=== PATIENT | female | born 2000 | race Hispanic/Latino ===

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

== ENCOUNTER → 2020-04-26 | Outpatient (REF) | payer OTHER, MEDICAID ==
[~2020-04-26] MED LIST changes: +AUGM875T28 PO
[2020-04-26 17:24] LABS: BASO % 0.4 % (0.0-1.0); EOS # 0.3 10^3/uL (0.0-0.5); EOS % 2.3 % (0.0-3.0); HEMATOCRIT 36.8 % (36.0-47.0); HEMOGLOBIN 11.8 g/dl (12.0-15.5); LYMPH # 3.5 10^3/uL (1.5-5.0); LYMPH % 32.5 % (24.0-44.0); MEAN CORPUSCULAR HEMOGLOBIN 26.9 pg (27.0-33.0); MEAN CORPUSCULAR HGB CONC 32.1 g/dl (32.0-36.5); MEAN CORPUSCULAR VOLUME 83.8 fl (80.0-96.0); MONO # 0.6 10^3/uL (0.0-0.8); MONO % 5.7 % (0.0-5.0); NEUTROPHILS # 6.3 10^3/uL (1.5-8.5); NEUTROPHILS % 58.8 % (36.0-66.0); PLATELET COUNT, AUTOMATED 406 10^3/uL (150-450); RED BLOOD COUNT 4.39 10^6/uL (4.00-5.40); WHITE BLOOD COUNT 10.8 10^3/uL (4.0-10.0)
[2020-04-26 18:22] LABS: ALT/SGPT 25 U/L (12-78); BILIRUBIN,TOTAL 0.3 MG/DL (0.2-1.0); BLOOD UREA NITROGEN 13 MG/DL (7-18); CALCIUM LEVEL 9.3 MG/DL (8.5-10.1); CARBON DIOXIDE LEVEL 28 MEQ/L (21-32); CHLORIDE LEVEL 106 MEQ/L (98-107); CHOLESTEROL LEVEL 180 MG/DL (<200); CHOLESTEROL RISK RATIO 5.625 (<5); CREATININE FOR GFR 0.77 MG/DL (0.55-1.30); FREE T4 0.98 NG/DL (0.76-1.46); GLOMERULAR FILTRATION RATE > 60.0 (>60); GLUCOSE, FASTING 80 MG/DL (70-100); HDL CHOLESTEROL 32 MG/DL (>40); LDL CHOLESTEROL 86 MG/DL (<100); NON-HDL-C 148 MG/DL; POTASSIUM SERUM 4.5 MEQ/L (3.5-5.1); SODIUM LEVEL 139 MEQ/L (136-145); TOTAL PROTEIN 8.5 GM/DL (6.4-8.2); TRIGLYCERIDES LEVEL 311 MG/DL (<150)
[2020-04-26 18:26] LABS: TOTAL 25(OH) VITAMIN D 19.9 NG/ML (30.0-100.0)
[2020-04-26 20:11] LABS: HEMOGLOBIN A1c 5.5 %
== END ==
LOC: M LAB REF 16:13
PROVIDERS: ATTEND Nurse Practitioner Family
DX: J30.9 Allergic rhinitis, unspecified (principal); Z13.9 Encounter for screening, unspecified; E66.9 Obesity, unspecified; J45.990 Exercise induced bronchospasm; Z82.49 Family history of ischemic heart disease and other diseases of the circulatory system; Z83.3 Family history of diabetes mellitus; Z81.8 Family history of other mental and behavioral disorders; Z82.5 Family history of asthma and other chronic lower respiratory diseases

== ENCOUNTER 2020-05-31 13:52 | Emergency (ER) | payer OTHER, MEDICAID ==
[~2020-05-31] VITALS: Ht 152.4 cm; Wt 79.5 kg
[2020-05-31 13:53] VITALS: BP 118/66
[2020-05-31] MEDS ORDERED: D31000TA2 PO (14:05)
== END 2020-05-31 17:25 | disposition home or self-care (01) ==
LOC: M ED 13:52
DX: R50.9 Fever, unspecified (principal); R51.9 Headache, unspecified; R11.0 Nausea; R09.81 Nasal congestion; R07.0 Pain in throat; J45.909 Unspecified asthma, uncomplicated
CPT/HCPCS: 99283; U0003

== ENCOUNTER → 2020-08-24 | Outpatient (REF) | payer OTHER, MEDICAID ==
[~2020-08-24] MED LIST changes: +D31000TA2 PO
[2020-08-24 12:06] LABS: BASO % 0.3 % (0.0-1.0); EOS # 0.3 10^3/uL (0.0-0.5); EOS % 2.9 % (0.0-3.0); HEMATOCRIT 38.5 % (36.0-47.0); HEMOGLOBIN 11.7 g/dl (12.0-15.5); LYMPH # 3.4 10^3/uL (1.5-5.0); MEAN CORPUSCULAR HEMOGLOBIN 26.4 pg (27.0-33.0); MEAN CORPUSCULAR HGB CONC 30.4 g/dl (32.0-36.5); MEAN CORPUSCULAR VOLUME 86.7 fl (80.0-96.0); MONO # 0.6 10^3/uL (0.0-0.8); MONO % 6.4 % (2.0-8.0); NEUTROPHILS # 4.4 10^3/uL (1.5-8.5); NEUTROPHILS % 51.1 % (36.0-66.0); PLATELET COUNT, AUTOMATED 428 10^3/uL (150-450); RED BLOOD COUNT 4.44 10^6/uL (4.00-5.40); WHITE BLOOD COUNT 8.6 10^3/uL (4.0-10.0)
[2020-08-24 12:41] LABS: ALBUMIN 4.1 GM/DL (3.2-5.2); ALT/SGPT 31 U/L (12-78); BILIRUBIN,TOTAL 0.2 MG/DL (0.2-1.0); BLOOD UREA NITROGEN 10 MG/DL (7-18); CALCIUM LEVEL 9.2 MG/DL (8.5-10.1); CARBON DIOXIDE LEVEL 26 MEQ/L (21-32); CHLORIDE LEVEL 106 MEQ/L (98-107); CHOLESTEROL LEVEL 173 MG/DL (<200); CREATININE FOR GFR 0.73 MG/DL (0.55-1.30); GLOMERULAR FILTRATION RATE > 60.0 (>60); GLUCOSE, FASTING 106 MG/DL (70-100); HDL CHOLESTEROL 31 MG/DL (>40); LDL CHOLESTEROL 90 MG/DL (<100); NON-HDL-C 142 MG/DL; POTASSIUM SERUM 3.9 MEQ/L (3.5-5.1); SODIUM LEVEL 139 MEQ/L (136-145); TOTAL PROTEIN 8.2 GM/DL (6.4-8.2); TRIGLYCERIDES LEVEL 262 MG/DL (<150)
== END ==
LOC: M LAB REF 11:11
PROVIDERS: ATTEND Nurse Practitioner Family
DX: E78.2 Mixed hyperlipidemia (principal)

== ENCOUNTER 2021-04-04 13:47 | Emergency (ER) | payer MEDICAID, OTHER ==
[~2021-04-04] VITALS: Ht 152.4 cm; Wt 77.1 kg
[2021-04-04 19:32] LABS: BASO % 0.3 % (0.0-1.0); EOS # 0.2 10^3/uL (0.0-0.5); EOS % 1.5 % (0.0-3.0); LYMPH # 3.7 10^3/uL (1.5-5.0); LYMPH % 29.2 % (24.0-44.0); MEAN CORPUSCULAR HEMOGLOBIN 26.7 pg (27.0-33.0); MEAN CORPUSCULAR HGB CONC 31.6 g/dl (32.0-36.5); MEAN CORPUSCULAR VOLUME 84.4 fl (80.0-96.0); MONO # 0.7 10^3/uL (0.0-0.8); MONO % 5.5 % (2.0-8.0); NEUTROPHILS % 63.2 % (36.0-66.0); PLATELET COUNT, AUTOMATED 409 10^3/uL (150-450); WHITE BLOOD COUNT 12.6 10^3/uL (4.0-10.0)
[2021-04-04 19:58] LABS: ALBUMIN 3.9 GM/DL (3.2-5.2); BILIRUBIN,DIRECT 0.1 MG/DL (0.0-0.2); BILIRUBIN,TOTAL 0.3 MG/DL (0.2-1.0); TOTAL PROTEIN 8.5 GM/DL (6.4-8.2)
--- NOTE | 2021-04-04 21:54 | REPVR ---
PROCEDURE INFORMATION: Exam: US Nonobstetric Pelvis; Complete Exam date and time: 04/04/2021 8:32 PM Age: 21 years old Clinical indication: Pelvic pain; Additional info: Low right abdominal pain/try to visual ovary and appendix TECHNIQUE: Imaging protocol: Transabdominal pelvic nonobstetric ultrasound. Complete exam. Real time ultrasound with image documentation. COMPARISON: No relevant prior studies available. FINDINGS: Uterus/cervix: Uterus measures 8.1 x 4.5 x 4.9 cm in size. No focal uterine mass. Endometrial stripe appears homogeneous, measuring 13 mm in thickness. Right adnexa: Right ovary measures 6.9 x 3.9 x 5.3 cm in size. Possible complex cyst 3.9 cm. Doppler flow is documented in both ovaries. Right ovarian resistive index 0.55. Left ovarian resistive index 0.46 Left adnexa: Left ovary measures 4.8 x 3.9 x 5.1 cm in size. Small 19 mm simple cyst/follicle. Appendix: Appendix is not visualized. Intraperitoneal space: Trace free fluid is present in the pelvis. Urinary bladder: Urinary bladder appears unremarkable. IMPRESSION: 1. Complex right ovarian lesion which may represent a hemorrhagic cyst perhaps most likely, or endometrioma. No evidence of ovarian torsion 2. Simple follicle/cyst, left ovary. 3. No uterine abnormality. 4. Nonvisualization of the appendix Electronically signed by: Julito Rizvi On 04/04/2021 21:53:34 PM
[2021-04-04 22:56] VITALS: BP 130/68
--- NOTE | 2021-04-06 16:42 | ED PDOC ---
Post-Departure Follow-Up pelvic us faxed to arturo chandra for fu Yoly Paredes MD Apr 06, 2021 16:42
== END 2021-04-04 22:59 | disposition home or self-care (01) ==
LOC: M ED 13:47
DX: N83.291 Other ovarian cyst, right side (principal); N83.292 Other ovarian cyst, left side; J45.909 Unspecified asthma, uncomplicated

== ENCOUNTER 2021-09-19 15:43 | Inpatient (IN) | payer OTHER ==
[~2021-09-19] VITALS: Ht 152.4 cm; Wt 74.9 kg
[~2021-09-19 15:43] MED LIST changes: -D31000TA2 PO; +VITA100093 PO
[2021-09-19] MEDS ORDERED: CETI-24 (16:07)
[2021-09-19] MEDS ORDERED: KETOROLAC 30 MG/ML 1ML VIAL IV ONE ×2 (18:25→20:10)
[2021-09-19 18:57] LABS: HEMATOCRIT 38.6 % (36.0-47.0); HEMOGLOBIN 12.5 g/dl (12.0-15.5); MEAN CORPUSCULAR HEMOGLOBIN 26.4 pg (27.0-33.0); MEAN CORPUSCULAR HGB CONC 32.4 g/dl (32.0-36.5); MEAN CORPUSCULAR VOLUME 81.4 fl (80.0-96.0); PLATELET COUNT, AUTOMATED 400 10^3/uL (150-450); RED BLOOD COUNT 4.74 10^6/uL (4.00-5.40); WHITE BLOOD COUNT 11.9 10^3/uL (4.0-10.0)
[2021-09-19 19:24] LABS: BASOPHILS 1 % (0-1); EOSINOPHILS 3 % (0-3); LYMPHOCYTES 39 % (16-44); MONOCYTES 6 % (0-5); NEUTROPHILS 51 % (28-66)
[2021-09-19 19:25] LABS: PLATELET ESTIMATE NORMAL (NORMAL)
[2021-09-19 19:31] LABS: ALBUMIN 4.2 GM/DL (3.2-5.2); ALT/SGPT 21 U/L (12-78); AMYLASE 52 U/L (25-115); BILIRUBIN,DIRECT < 0.1 MG/DL (0.0-0.2); BILIRUBIN,TOTAL 0.4 MG/DL (0.2-1.0); BLOOD UREA NITROGEN 10 MG/DL (7-18); C REACTIVE PROTEIN QUANTITATIV 1.44 MG/DL (0.00-0.30); CALCIUM LEVEL 9.6 MG/DL (8.5-10.1); CARBON DIOXIDE LEVEL 29 MEQ/L (21-32); CHLORIDE LEVEL 106 MEQ/L (98-107); CREATININE FOR GFR 0.69 MG/DL (0.55-1.30); GLOMERULAR FILTRATION RATE > 60.0 (>60); GLUCOSE, FASTING 73 MG/DL (70-100); LIPASE 107 U/L (73-393); POTASSIUM SERUM 4.3 MEQ/L (3.5-5.1); SODIUM LEVEL 138 MEQ/L (136-145); TOTAL PROTEIN 8.8 GM/DL (6.4-8.2)
[2021-09-19] MEDS ORDERED: NS 1,000 ML IV ONE (19:45)
[2021-09-19 19:46] LABS: ERYTHROCYTE SEDIMENTATION RATE 52 mm/hr (0-20)
[2021-09-19] MEDS ORDERED: ISOVUE-370 76% 100ML VIAL As Ordered ONE (19:55)
[2021-09-19 21:16] LABS: HCG, SERUM QUALITATIVE NEGATIVE (NEGATIVE)
[2021-09-19] MEDS ORDERED: MORPHINE 4 MG/ML 1ML VIAL/SYRINGE IV ONE (22:50)
[2021-09-19] MEDS ORDERED: MORPHINE 4 MG/ML 1ML VIAL/SYRINGE IV PRN (23:30)
[2021-09-19] MEDS ORDERED: ONDANSETRON 4MG/2ML VIAL IV PRN (23:30)
[2021-09-19] MEDS ORDERED: PERCOCET 5MG/325MG TAB PO PRN ×2 (23:30)
[2021-09-19] MEDS ORDERED: ALBU8.5H INH (23:42)
[2021-09-19] MEDS ORDERED: CETI-24 PO (23:42)
[2021-09-19] MEDS ORDERED: HOME MED LIST COMPLETE! XX SCH (23:45)
[2021-09-20] MEDS: LR 1,000 ML IV SCH ×3 (00:01→15:13)
[2021-09-20 00:59] LABS: RSV AMPLIFICATION NEGATIVE (NEGATIVE)
[2021-09-20 02:30] VITALS: BP 99/58
[2021-09-20 06:00] VITALS: BP 100/57
[2021-09-20 08:47] LABS: HEMATOCRIT 33.5 % (36.0-47.0); HEMOGLOBIN 10.8 g/dl (12.0-15.5); MEAN CORPUSCULAR HEMOGLOBIN 26.6 pg (27.0-33.0); MEAN CORPUSCULAR HGB CONC 32.2 g/dl (32.0-36.5); MEAN CORPUSCULAR VOLUME 82.5 fl (80.0-96.0); PLATELET COUNT, AUTOMATED 335 10^3/uL (150-450); RED BLOOD COUNT 4.06 10^6/uL (4.00-5.40); WHITE BLOOD COUNT 9.5 10^3/uL (4.0-10.0)
[2021-09-20 08:50] VITALS: BP 100/57
[2021-09-20 11:09] LABS: GC DNA AMPLIFICATION NEGATIVE (NEGATIVE)
[2021-09-20 14:00] VITALS: BP 140/70
[2021-09-20] MEDS ORDERED: SPRI28TA PO (15:18)
== END 2021-09-20 18:00 | disposition home or self-care (01) | DRG 532 ==
LOC: M ED 15:43 → M ED INP 23:30 → ENRESERV 09-20 01:23 → M MS5PR 09-20 02:28
PROVIDERS: ADMIT Specialist; ATTEND Specialist
DX: N80.9 Endometriosis, unspecified (principal); J45.909 Unspecified asthma, uncomplicated; Z20.822 Contact with and (suspected) exposure to COVID-19; Z79.899 Other long term (current) drug therapy; R10.2 Pelvic and perineal pain

== ENCOUNTER → 2022-01-18 | Outpatient (CLI) | payer OTHER ==
[~2022-01-18] MED LIST changes: +ALBU8.5H INH; +BIOT10009 PO; +CETI-24; +CETI-24 PO; +KETO10TAB PO; +SPRI28TA PO
== END ==
LOC: M LABSMTC 11:27
PROVIDERS: ATTEND Anesthesiology
DX: Z01.812 Encounter for preprocedural laboratory examination (principal); Z20.822 Contact with and (suspected) exposure to COVID-19

== ENCOUNTER 2022-01-23 09:44 | Day surgery (SDC) | payer OTHER ==
[~2022-01-23] VITALS: Ht 152.4 cm; Wt 73.6 kg
[2022-01-23] MEDS ORDERED: MIDAZOLAM INJ 2MG/2ML VIAL (J2250 PER 1MG) As Ordered ONE (10:31)
[2022-01-23] MEDS ORDERED: dexameTHASONE 4 MG/ML 1ML VIAL (J1100 PER 1MG) As Ordered ONE (10:32)
[2022-01-23] MEDS ORDERED: propofoL 200 MG/20 ML VIAL As Ordered ONE (10:32)
[2022-01-23] MEDS ORDERED: ONDANSETRON 4MG 2ML VIAL As Ordered ONE (10:32)
[2022-01-23] MEDS ORDERED: ROCURONIUM BROMIDE 50 MG/5 ML VIAL As Ordered ONE (10:32)
[2022-01-23] MEDS ORDERED: LIDOCAINE 2% 100MG/5ML SDV (FOR ANES.) As Ordered ONE (10:32)
[2022-01-23] MEDS ORDERED: fentaNYL 100 MCG/2 ML INJECTION As Ordered ONE ×2 (10:32→15:16)
[2022-01-23] MEDS: LR 1,000 ML IV SCH (10:46)
[2022-01-23 11:06] LABS: HEMATOCRIT 38.2 % (36.0-47.0); HEMOGLOBIN 12.3 g/dl (12.0-15.5); MEAN CORPUSCULAR HEMOGLOBIN 26.7 pg (27.0-33.0); MEAN CORPUSCULAR HGB CONC 32.2 g/dl (32.0-36.5); PLATELET COUNT, AUTOMATED 386 10^3/uL (150-450); WHITE BLOOD COUNT 10.7 10^3/uL (4.0-10.0)
[2022-01-23] MEDS ORDERED: BUPIVACAINE HCL 0.25% 10ML VIAL As Ordered ONE (12:03)
[2022-01-23] MEDS ORDERED: ACETAMINOPHEN 1000MG 100ML IV BTL (OFIRMEV) (J0131 PER 10MG) As Ordered ONE (12:47)
[2022-01-23] MEDS ORDERED: HYDROmorphone HCL 2MG/ML 1ML VIAL As Ordered ONE (12:51)
[2022-01-23] MEDS ORDERED: KETOROLAC 60MG 2ML VIAL As Ordered ONE (13:16)
[2022-01-23] MEDS ORDERED: SUGAMMADEX SODIUM 500 MG/5 ML VIAL (BRIDION) As Ordered ONE (15:11)
[2022-01-23] MEDS ORDERED: METOCLOPRAMIDE INJ 10MG/2ML VIAL (J2765 PER 1) IV PRN (15:45)
[2022-01-23] MEDS ORDERED: MEPERIDINE INJ 25 MG/ML VIAL (J2175) IV PRN (15:45)
[2022-01-23] MEDS ORDERED: HYDROMORPHONE HCL 0.5 MG/ 0.5 ML SYRINGE (J1170 PER 1) IV PRN (15:45)
[2022-01-23] MEDS ORDERED: ONDANSETRON 4MG 2ML VIAL IV PRN (15:45)
[2022-01-23] MEDS ORDERED: LR 1,000 ML IV SCH ×2 (15:45→16:00)
[2022-01-23] MEDS ORDERED: IBUP-1022 PO (15:53)
[2022-01-23] MEDS ORDERED: OXYC1TAB23 PO (15:55)
[2022-01-23] MEDS: fentaNYL 100 MCG/2 ML INJECTION IV PRN ×4 (15:55→16:15)
[2022-01-23] MEDS ORDERED: PERCOCET 5MG/325MG TAB PO PRN (16:00)
[2022-01-23] MEDS: oxyCODONE 5MG TAB PO PRN ×2 (16:03→16:35)
[2022-01-23 19:24] VITALS: BP 116/66
== END 2022-01-23 19:35 | disposition home or self-care (01) ==
LOC: M SDC 09:44
PROVIDERS: ATTEND Specialist
DX: N80.9 Endometriosis, unspecified (principal); K66.0 Peritoneal adhesions (postprocedural) (postinfection); N83.201 Unspecified ovarian cyst, right side; N83.202 Unspecified ovarian cyst, left side; J45.909 Unspecified asthma, uncomplicated; F41.9 Anxiety disorder, unspecified; Z79.51 Long term (current) use of inhaled steroids
CPT/HCPCS: 36415; 58661; 58662; 81025; 85027; 88307; 88331; J0131; J1100; J1170; J1885; J2250; J2405; J3010

== ENCOUNTER → 2022-01-31 | Outpatient (REF) ==
[~2022-01-31] MED LIST changes: +IBUP-1022 PO; +OXYC1TAB23 PO
== END ==
LOC: M LAB 12:24
PROVIDERS: ATTEND Nurse Practitioner Adult Health
DX: Z02.1 Encounter for pre-employment examination (principal)

== ENCOUNTER → 2022-02-23 | Outpatient (REF) | LOC: M RAD 11:58 | PROVIDERS: ATTEND Nurse Practitioner Adult Health | DX: Z02.1 Encounter for pre-employment examination (principal) ==

== ENCOUNTER 2022-04-22 23:54 | Emergency (ER) | payer OTHER ==
[~2022-04-22] VITALS: Ht 152.4 cm; Wt 74.3 kg
[2022-04-23 02:45] LABS: BASO % 0.2 % (0.0-1.0); HEMATOCRIT 33.9 % (36.0-47.0); HEMOGLOBIN 10.9 g/dl (12.0-15.5); LYMPH # 1.8 10^3/uL (1.5-5.0); LYMPH % 19.3 % (24.0-44.0); MEAN CORPUSCULAR HEMOGLOBIN 26.1 pg (27.0-33.0); MEAN CORPUSCULAR HGB CONC 32.2 g/dl (32.0-36.5); MEAN CORPUSCULAR VOLUME 81.3 fl (80.0-96.0); MONO # 0.8 10^3/uL (0.0-0.8); MONO % 8.9 % (2.0-8.0); NEUTROPHILS # 6.7 10^3/uL (1.5-8.5); NEUTROPHILS % 71.4 % (36.0-66.0); PLATELET COUNT, AUTOMATED 381 10^3/uL (150-450); RED BLOOD COUNT 4.17 10^6/uL (4.00-5.40); WHITE BLOOD COUNT 9.4 10^3/uL (4.0-10.0)
[2022-04-23 03:12] LABS: HCG, SERUM QUALITATIVE NEGATIVE (NEGATIVE)
[2022-04-23 03:22] LABS: ALBUMIN 3.8 GM/DL (3.2-5.2); ALT/SGPT 21 U/L (12-78); BILIRUBIN,DIRECT 0.1 MG/DL (0.0-0.2); BILIRUBIN,TOTAL 0.5 MG/DL (0.2-1.0); BLOOD UREA NITROGEN 7 MG/DL (7-18); CALCIUM LEVEL 9.5 MG/DL (8.5-10.1); CARBON DIOXIDE LEVEL 28 MEQ/L (21-32); CHLORIDE LEVEL 106 MEQ/L (98-107); CREATININE FOR GFR 0.73 MG/DL (0.55-1.30); GLOMERULAR FILTRATION RATE > 60.0 (>60); GLUCOSE, FASTING 91 MG/DL (70-100); LIPASE 94 U/L (73-393); POTASSIUM SERUM 3.7 MEQ/L (3.5-5.1); SODIUM LEVEL 140 MEQ/L (136-145); TOTAL PROTEIN 8.3 GM/DL (6.4-8.2)
[2022-04-23 04:56] VITALS: BP 125/68
== END 2022-04-23 05:08 | disposition left against medical advice (07) ==
LOC: M ED 23:54
DX: Z53.21 Procedure and treatment not carried out due to patient leaving prior to being seen by health care provider (principal)

== ENCOUNTER → 2022-05-10 | Outpatient (CLI) | payer OTHER ==
[2022-05-10 14:30] LABS: BASO % 0.2 % (0.0-1.0); EOS # 0.2 10^3/uL (0.0-0.5); EOS % 2.1 % (0.0-3.0); HEMATOCRIT 36.6 % (36.0-47.0); LYMPH # 2.9 10^3/uL (1.5-5.0); LYMPH % 34.2 % (24.0-44.0); MEAN CORPUSCULAR HEMOGLOBIN 24.9 pg (27.0-33.0); MEAN CORPUSCULAR HGB CONC 30.1 g/dl (32.0-36.5); MONO # 0.5 10^3/uL (0.0-0.8); MONO % 5.5 % (2.0-8.0); NEUTROPHILS # 4.8 10^3/uL (1.5-8.5); NEUTROPHILS % 57.5 % (36.0-66.0); PLATELET COUNT, AUTOMATED 407 10^3/uL (150-450); RED BLOOD COUNT 4.41 10^6/uL (4.00-5.40); WHITE BLOOD COUNT 8.4 10^3/uL (4.0-10.0)
[2022-05-10 17:25] LABS: CORTISOL BASELINE 5.1 UG/DL (4.3-22.4); FERRITIN 13.1 NG/ML (7.3-270.7); IRON (FE) 34 UG/DL (50-170); PERCENT SATURATION 9.1 % (13.2-45.0); PROLACTIN 9.15 NG/ML; TOTAL IRON BINDING CAPACITY 373 UG/DL (250-425)
[2022-05-12 12:10] LABS: ANTINUCLEAR ANTIBODIES DIRECT Negative (Negative); TRANSFERRIN 311 mg/dL (192-364)
== END ==
LOC: M LAB 13:00
PROVIDERS: ATTEND Obstetrics & Gynecology
DX: A49.9 Bacterial infection, unspecified (principal); C56.9 Malignant neoplasm of unspecified ovary; L65.9 Nonscarring hair loss, unspecified; N94.89 Other specified conditions associated with female genital organs and menstrual cycle; E11.9 Type 2 diabetes mellitus without complications

== ENCOUNTER → 2022-05-10 | Outpatient (CLI) | payer OTHER | LOC: M WHC 11:10 | PROVIDERS: ATTEND Obstetrics & Gynecology | DX: C56.9 Malignant neoplasm of unspecified ovary (principal); R10.2 Pelvic and perineal pain; L65.9 Nonscarring hair loss, unspecified; E11.9 Type 2 diabetes mellitus without complications; N94.89 Other specified conditions associated with female genital organs and menstrual cycle ==

== ENCOUNTER 2022-06-28 21:32 | Emergency (ER) | payer OTHER ==
[~2022-06-28] VITALS: Ht 152.4 cm; Wt 75.0 kg
[2022-06-29 00:53] LABS: HEMATOCRIT 34.4 % (36.0-47.0); HEMOGLOBIN 10.7 g/dl (12.0-15.5); MEAN CORPUSCULAR HEMOGLOBIN 25.6 pg (27.0-33.0); MEAN CORPUSCULAR HGB CONC 31.1 g/dl (32.0-36.5); MEAN CORPUSCULAR VOLUME 82.3 fl (80.0-96.0); PLATELET COUNT, AUTOMATED 399 10^3/uL (150-450); RED BLOOD COUNT 4.18 10^6/uL (4.00-5.40); WHITE BLOOD COUNT 13.3 10^3/uL (4.0-10.0)
[2022-06-29 01:12] LABS: ANISOCYTOSIS 1+; BASOPHILS 1 % (0-1); EOSINOPHILS 1 % (0-3); LYMPHOCYTES 29 % (16-44); MONOCYTES 5 % (0-5); NEUTROPHILS 64 % (28-66); PLATELET ESTIMATE NORMAL (NORMAL)
[2022-06-29 01:25] LABS: CPK CREATINE PHOSPHOKINASE 85 U/L (34-145)
[2022-06-29 01:26] LABS: BLOOD UREA NITROGEN 11 MG/DL (9-23); CALCIUM LEVEL 9.3 MG/DL (8.5-10.1); CARBON DIOXIDE LEVEL 28 MMOL/L (20-31); CHLORIDE LEVEL 102 MMOL/L (98-107); CK-MB VALUE MASS < 1.0 NG/ML (<3.6); GLOMERULAR FILTRATION RATE > 60.0 (>60); GLUCOSE, FASTING 88 MG/DL (60-100); MB/CK RELATIVE INDEX 1.17 (< OR =4); POTASSIUM SERUM 4.2 MMOL/L (3.5-5.1); SODIUM LEVEL 139 MMOL/L (136-145)
[2022-06-29 01:28] LABS: FREE T4 1.04 NG/DL (0.89-1.76)
[2022-06-29 02:05] VITALS: BP 123/70
== END 2022-06-29 04:16 | disposition left against medical advice (07) ==
LOC: M ED 21:32
DX: Z53.21 Procedure and treatment not carried out due to patient leaving prior to being seen by health care provider (principal)

== ENCOUNTER 2022-08-06 22:25 | Emergency (ER) | payer OTHER ==
[~2022-08-06] VITALS: Ht 152.4 cm; Wt 75.0 kg
[2022-08-06] MEDS ORDERED: ACET-861 PO (22:41)
[2022-08-06] MEDS ORDERED: IBUP80TA PO (22:41)
[2022-08-07 01:21] LABS: HEMATOCRIT 34.9 % (36.0-47.0); HEMOGLOBIN 10.9 g/dl (12.0-15.5); MEAN CORPUSCULAR HEMOGLOBIN 25.8 pg (27.0-33.0); MEAN CORPUSCULAR HGB CONC 31.2 g/dl (32.0-36.5); MEAN CORPUSCULAR VOLUME 82.7 fl (80.0-96.0); PLATELET COUNT, AUTOMATED 414 10^3/uL (150-450); RED BLOOD COUNT 4.22 10^6/uL (4.00-5.40); WHITE BLOOD COUNT 13.6 10^3/uL (4.0-10.0)
[2022-08-07 01:42] LABS: HCG, SERUM QUANTITATIVE < 2.6 MIU/ML (<4.2)
[2022-08-07 01:44] LABS: BLOOD UREA NITROGEN 13 MG/DL (9-23); CALCIUM LEVEL 8.7 MG/DL (8.5-10.1); CARBON DIOXIDE LEVEL 25 MMOL/L (20-31); CHLORIDE LEVEL 108 MMOL/L (98-107); GLOMERULAR FILTRATION RATE > 60.0 (>60); GLUCOSE, FASTING 112 MG/DL (60-100); POTASSIUM SERUM 3.7 MMOL/L (3.5-5.1); SODIUM LEVEL 140 MMOL/L (136-145)
[2022-08-07 01:58] LABS: ANISOCYTOSIS 1+; ATYPICAL LYMPH 7 % (0-5); EOSINOPHILS 5 % (0-3); LYMPHOCYTES 33 % (16-44); MONOCYTES 4 % (0-5); NEUTROPHILS 51 % (28-66)
[2022-08-07 01:59] LABS: HYPOCHROMASIA 1+; PLATELET ESTIMATE INCREASED (NORMAL)
[2022-08-07 02:34] VITALS: BP 122/80
== END 2022-08-07 05:05 | disposition left against medical advice (07) ==
LOC: M ED 22:25 → EDBD 22:25 → M ED 08-07 05:05
DX: Z53.21 Procedure and treatment not carried out due to patient leaving prior to being seen by health care provider (principal)

== ENCOUNTER → 2022-09-06 | Outpatient (CLI) | payer OTHER ==
[~2022-09-06] MED LIST changes: +ACET-861 PO; +IBUP80TA PO
[2022-09-06 17:09] LABS: HEMOGLOBIN A1c 5.3 % (4.0-6.0)
[2022-09-06 17:27] LABS: FOLLICLE STIMULATING HORMONE 13.4 mIU/ML; LUTEINIZING HORMONE 4.7 mIU/ML
[2022-09-06 17:28] LABS: PROLACTIN 7.2 NG/ML
[2022-09-06 17:29] LABS: PROGESTERONE 0.51 NG/ML
== END ==
LOC: M LAB 15:50
PROVIDERS: ATTEND Specialist
DX: L65.9 Nonscarring hair loss, unspecified (principal)

== ENCOUNTER → 2023-01-03 | Outpatient (REF) | payer OTHER | LOC: M LAB REF 12:22 | PROVIDERS: ATTEND Nurse Practitioner Family | DX: R68.89 Other general symptoms and signs (principal) ==

== ENCOUNTER → 2023-03-07 | Outpatient (REF) | payer OTHER ==
[2023-03-07 12:59] LABS: BASO % 0.2 % (0.0-1.0); EOS # 0.3 10^3/uL (0.0-0.5); EOS % 3.3 % (0.0-3.0); HEMATOCRIT 35.2 % (36.0-47.0); HEMOGLOBIN 11.1 g/dl (12.0-15.5); LYMPH # 3.3 10^3/uL (1.5-5.0); LYMPH % 36.1 % (24.0-44.0); MEAN CORPUSCULAR HGB CONC 31.5 g/dl (32.0-36.5); MEAN CORPUSCULAR VOLUME 82.4 fl (80.0-96.0); MONO # 0.6 10^3/uL (0.0-0.8); MONO % 6.4 % (2.0-8.0); NEUTROPHILS # 4.8 10^3/uL (1.5-8.5); NEUTROPHILS % 53.8 % (36.0-66.0); PLATELET COUNT, AUTOMATED 449 10^3/uL (150-450); RED BLOOD COUNT 4.27 10^6/uL (4.00-5.40)
[2023-03-07 13:01] LABS: THYROID STIMULATING HORMONE 2.821 uIU/ML (0.55-4.78)
[2023-03-07 13:02] LABS: ALBUMIN 3.8 G/DL (3.2-5.2); ALKALINE PHOSPHATASE 107 U/L (46-116); ALT/SGPT 18 U/L (7.0-40); AST/SGOT 15 U/L (<34); BILIRUBIN,TOTAL 0.2 MG/DL (0.3-1.2); BLOOD UREA NITROGEN 11 MG/DL (9-23); CALCIUM LEVEL 9.4 MG/DL (8.5-10.1); CARBON DIOXIDE LEVEL 28 MMOL/L (20-31); CHLORIDE LEVEL 103 MMOL/L (98-107); CHOLESTEROL LEVEL 188 MG/DL (<200); CHOLESTEROL RISK RATIO 5.12 (<5); GLOMERULAR FILTRATION RATE > 60.0 (>60); GLUCOSE, FASTING 87 MG/DL (60-100); HDL CHOLESTEROL 36.7 MG/DL (>40); LDL CHOLESTEROL 107.9 MG/DL (<100); NON-HDL-C 151.3 MG/DL; POTASSIUM SERUM 4.2 MMOL/L (3.5-5.1); SODIUM LEVEL 140 MMOL/L (136-145); TOTAL 25(OH) VITAMIN D 21.5 NG/ML (20.0-100.0); TOTAL PROTEIN 7.6 G/DL (5.7-8.2); TRIGLYCERIDES LEVEL 217 MG/DL (<150)
[2023-03-07 13:13] LABS: HEMOGLOBIN A1c 5.9 % (4.0-6.0)
== END ==
LOC: M LAB REF 12:02
PROVIDERS: ATTEND Nurse Practitioner Family
DX: Z13.228 Encounter for screening for other metabolic disorders (principal)

== ENCOUNTER 2023-09-03 02:58 | Emergency (ER) | payer OTHER ==
[~2023-09-03] VITALS: Ht 152.4 cm; Wt 78.3 kg
[2023-09-03] MEDS ORDERED: ISOVUE-370 76% 100ML VIAL As Ordered ONE (08:21)
[2023-09-03] MEDS ORDERED: PRED20TA PO (10:12)
[2023-09-03 10:35] VITALS: BP 113/57; TEMP 97; O2SAT 99
== END 2023-09-03 10:40 | disposition home or self-care (01) ==
LOC: M ED 02:58
DX: J45.901 Unspecified asthma with (acute) exacerbation (principal)
CPT/HCPCS: 71275; 80047; 84702; 87486; 87581; 87633; 87798; 99285; Q9967

== ENCOUNTER → 2023-09-20 | Outpatient (CLI) | payer OTHER ==
[~2023-09-20] MED LIST changes: +PRED20TA PO
[2023-09-20 16:44] LABS: BASO % 0.3 % (0.0-1.0); EOS # 0.3 10^3/uL (0.0-0.5); EOS % 2.6 % (0.0-3.0); HEMATOCRIT 36.2 % (36.0-47.0); HEMOGLOBIN 11.6 g/dl (12.0-15.5); LYMPH # 3.3 10^3/uL (1.5-5.0); LYMPH % 30.7 % (24.0-44.0); MEAN CORPUSCULAR HEMOGLOBIN 26.4 pg (27.0-33.0); MEAN CORPUSCULAR VOLUME 82.5 fl (80.0-96.0); MONO # 0.7 10^3/uL (0.0-0.8); MONO % 6.6 % (2.0-8.0); NEUTROPHILS # 6.4 10^3/uL (1.5-8.5); NEUTROPHILS % 59.4 % (36.0-66.0); PLATELET COUNT, AUTOMATED 391 10^3/uL (150-450); RED BLOOD COUNT 4.39 10^6/uL (4.00-5.40); WHITE BLOOD COUNT 10.7 10^3/uL (4.0-10.0)
[2023-09-20 17:07] LABS: HEMOGLOBIN A1c 5.4 % (4.0-6.0)
[2023-09-20 17:31] LABS: ALBUMIN 3.7 G/DL (3.2-5.2); ALKALINE PHOSPHATASE 94 U/L (46-116); ALT/SGPT 13 U/L (7.0-40); AST/SGOT 16 U/L (<34); BILIRUBIN,TOTAL 0.2 MG/DL (0.3-1.2); BLOOD UREA NITROGEN 10 MG/DL (9-23); CALCIUM LEVEL 9.8 MG/DL (8.5-10.1); CARBON DIOXIDE LEVEL 30 MMOL/L (20-31); CHLORIDE LEVEL 105 MMOL/L (98-107); CHOLESTEROL LEVEL 181 MG/DL (<200); CHOLESTEROL RISK RATIO 5.43 (<5); GLOMERULAR FILTRATION RATE > 60.0 (>60); GLUCOSE, FASTING 87 MG/DL (60-100); HDL CHOLESTEROL 33.3 MG/DL (>40); MAGNESIUM LEVEL 1.8 MG/DL (1.8-2.4); NON-HDL-C 147.7 MG/DL; SODIUM LEVEL 137 MMOL/L (136-145); THYROID STIMULATING HORMONE 2.024 uIU/ML (0.55-4.78); TOTAL PROTEIN 7.6 G/DL (5.7-8.2); TRIGLYCERIDES LEVEL 473 MG/DL (<150)
== END ==
LOC: M EKG 15:49
PROVIDERS: ATTEND Nurse Practitioner Family
DX: Z01.818 Encounter for other preprocedural examination (principal); E66.9 Obesity, unspecified; I51.7 Cardiomegaly

== ENCOUNTER → 2024-04-10 | Outpatient (CLI) | payer OTHER | LOC: M RAD 11:01 | PROVIDERS: ATTEND Obstetrics & Gynecology | DX: E28.8 Other ovarian dysfunction (principal); R10.2 Pelvic and perineal pain ==

== ENCOUNTER → 2024-09-24 | Outpatient (CLI) | payer OTHER | LOC: M RAD 10:03 | PROVIDERS: ATTEND Obstetrics & Gynecology | DX: N83.9 Noninflammatory disorder of ovary, fallopian tube and broad ligament, unspecified (principal); R10.2 Pelvic and perineal pain ==

== ENCOUNTER 2025-04-14 11:52 | Emergency (ER) | payer OTHER ==
[~2025-04-14] VITALS: Ht 152.4 cm; Wt 83.3 kg
[~2025-04-14 11:52] MED LIST changes: -IBUP-1022 PO; +IBUP600T42 PO
[2025-04-14 15:13] VITALS: BP 126/71; TEMP 97.5; O2SAT 99
== END 2025-04-14 15:16 | disposition home or self-care (01) ==
LOC: M ED 11:52
DX: S60.551A Superficial foreign body of right hand, initial encounter (principal); W45.8XXA Other foreign body or object entering through skin, initial encounter; Y92.9 Unspecified place or not applicable; Y93.9 Activity, unspecified; Y99.9 Unspecified external cause status

== ENCOUNTER → 2025-06-04 | Outpatient (CLI) | payer OTHER | LOC: M WHC 12:29 | PROVIDERS: ATTEND Student in an Organized Health Care Education/Training Program | DX: D49.59 Neoplasm of unspecified behavior of other genitourinary organ (principal) ==